=== PATIENT | male | born 2000 | race Caucasian/White ===

== ENCOUNTER → 2019-11-30 14:37 | Outpatient (BNVA) | payer OTHER, SELFPAY | PROVIDERS: Family Provider Family Medicine; Visit Provider Nurse Practitioner | DX: J02.9 Acute pharyngitis, unspecified (principal) | CPT/HCPCS: 87880 ==

== ENCOUNTER → 2019-12-27 14:00 | Outpatient (BNVA) | payer OTHER, SELFPAY | PROVIDERS: Family Provider Family Medicine; Visit Provider Nurse Practitioner Family | DX: Z20.89 Contact with and (suspected) exposure to other communicable diseases (principal); J45.909 Unspecified asthma, uncomplicated; R05 Cough; R53.83 Other fatigue; R68.83 Chills (without fever) | CPT/HCPCS: 87635 ==

== ENCOUNTER → 2023-06-05 10:37 | Outpatient (BNVA) | payer BC, SELFPAY | PROVIDERS: Family Provider Family Medicine; PCP Family Medicine; Visit Provider Emergency Medicine | DX: Z20.828 Contact with and (suspected) exposure to other viral communicable diseases (principal); J10.1 Influenza due to other identified influenza virus with other respiratory manifestations | CPT/HCPCS: 87400 ==